=== PATIENT | female | born 2000 | race Caucasian/White ===

== ENCOUNTER 2024-03-12 01:21 | Emergency (ER) | payer SELFPAY ==
[~2024-03-12] VITALS: Ht 160 cm; Wt 64.0 kg
[2024-03-12 01:34] VITALS: BP 101/66; PULSE 72; RESP 18; TEMP 97.7; O2SAT 97
== END 2024-03-12 02:46 | disposition left against medical advice (07) ==
LOC: ER 01:21
DX: N93.9 Abnormal uterine and vaginal bleeding, unspecified (principal)
CPT/HCPCS: 99283